=== PATIENT | male | born 1945 | race Caucasian/White ===

== ENCOUNTER → 2016-12-04 19:43 | Outpatient (CLI) | payer MEDICARE ==
[2013-09-07 13:07] VITALS: BMI 32.9
[~2016-12-04 19:43] MED LIST: ARICEPT10 MG PO; BENICAR20 MG PO; CARAFATE1 G PO; CORDARONE200 MG PO; CRESTOR10 MG PO; K-DUR20 MEQ PO; LANTUS INSULIN10 ML SC; LASIX20 MG PO; LOPRESSOR25 MG PO; MEDROL DOSE PACK4 MG PO; MICRO-K10 MEQ PO; NEURONTIN 100100 MG PO; PEPCID20 MG PO; PLAVIX75 MG PO; PROTONIX40 MG PO; REGLAN10 MG PO; RESTORIL15 MG PO; SOLU-MEDRO40 MG/1 M1 TD; ZITHROMAX250 MG PO
== END | disposition home or self-care (01) ==
LOC: D.SLEEP 19:43
DX: G47.33 Obstructive sleep apnea (adult) (pediatric) (principal)

== ENCOUNTER → 2016-12-21 19:46 | Outpatient (CLI) | payer MEDICARE ==
[2013-09-07 13:07] VITALS: BMI 32.9
== END | disposition home or self-care (01) ==
LOC: D.SLEEP 19:46
DX: G47.33 Obstructive sleep apnea (adult) (pediatric) (principal)

== ENCOUNTER → 2017-04-23 12:26 | Outpatient (CLI) | payer MEDICARE ==
[2013-09-07 13:07] VITALS: BMI 32.9
== END | disposition home or self-care (01) ==
LOC: D.CT 12:26
DX: D63.1 Anemia in chronic kidney disease (principal); E11.22 Type 2 diabetes mellitus with diabetic chronic kidney disease

== ENCOUNTER 2017-05-19 21:33 | Emergency (ER) | payer MEDICARE ==
[2013-09-07 13:07] VITALS: BMI 32.9
[2017-05-19 22:15] LABS: BASOPHILS 0.2 % (0-2); EOSINOPHILS 0.8 % (0-7); HEMATOCRIT 35.1 % (42.0-54.0); HEMOGLOBIN 12.1 g/dL (13.5-17.5); IMMATURE GRANULOCYTES 0.2 % (0-5); LYMPHOCYTES 23.6 % (15-50); MCH 32.9 pg (26.0-34.0); MCHC 34.5 g/dL (31.0-37.0); MCV 95.4 fL (80.0-100.0); MEAN PLATELET VOLUME 9.7 fL (7.4-10.4); MONOCYTES 7.7 % (2-11); NEUTROPHILS 67.5 % (40-80); RBC 3.68 10x6/uL (4.20-6.10); RDW 12.8 % (11.5-14.5); WBC 4.8 10x3/uL (4.8-10.8)
[2017-05-19 22:22] LABS: PLATELET COUNT 148 10x3/uL (130-400)
[2017-05-19 22:30] LABS: ALBUMIN 3.4 g/dL (3.4-5.0); ALKALINE PHOSPHATASE 87 U/L (46-116); ALT (SGPT) 33 U/L (10-68); BILIRUBIN - TOTAL 0.56 mg/dL (0.2-1.3); CALC OSMOLALITY 286 mosm/kg (275-300); CALCIUM 8.3 mg/dL (8.5-10.1); CARBON DIOXIDE 25.9 mmol/L (21.0-32.0); CHLORIDE - SERUM 100 mmol/L (98-107); CREATININE - SERUM 2.1 mg/dL (0.6-1.3); POTASSIUM - SERUM 3.8 mmol/L (3.5-5.1); PROTEIN - SERUM 7.1 g/dL (6.4-8.2); SODIUM 136 mmol/L (136-145); UREA NITROGEN 24 mg/dL (7-18); eGFR NON AFRICAN AMERICAN 33 mL/min (90-120)
[2017-05-19 22:34] LABS: GLUCOSE 297 mg/dL (74-106)
[2017-05-19 22:50] LABS: CREATINE KINASE 216 UL (21-232); PRO BNP 445 pg/mL (0-125); THYROID STIMULATING HORMONE 2.43 uIU/mL (0.36-3.74)
[2017-05-19 22:53] LABS: TROPONIN-I < 0.017 ng/mL (0.000-0.060)
[2017-05-19 22:58] LABS: APPEARANCE CLEAR (CLEAR); COLOR YELLOW (YELLOW)
[2017-05-19 22:59] LABS: SPECIFIC GRAVITY 1.015 (1.005-1.020)
[2017-05-19 23:00] LABS: BILIRUBIN NEGATIVE (NEGATIVE); GLUCOSE 1000 mg/dL (NEGATIVE); KETONE NEGATIVE (NEGATIVE); LEUKOCYTE ESTERASE NEGATIVE (NEGATIVE); NITRITE NEGATIVE (NEGATIVE); PROTEIN TRACE mg/dL (NEGATIVE); UROBILINOGEN NORMAL (NORMAL)
== END 2017-05-19 23:30 | disposition home or self-care (01) ==
LOC: D.ER 21:33
PROVIDERS: Emergency Medicine
DX: R42 Dizziness and giddiness (principal); R00.1 Bradycardia, unspecified; T46.2X5A Adverse effect of other antidysrhythmic drugs, initial encounter; Y92.89 Other specified places as the place of occurrence of the external cause; R60.9 Edema, unspecified; E11.65 Type 2 diabetes mellitus with hyperglycemia; Z79.4 Long term (current) use of insulin; N28.9 Disorder of kidney and ureter, unspecified; I44.0 Atrioventricular block, first degree

== ENCOUNTER → 2018-10-28 15:06 | Outpatient (CLI) | payer MEDICARE ==
[2013-09-07 13:07] VITALS: BMI 32.9
== END | disposition home or self-care (01) ==
LOC: D.CT 15:06
DX: M79.671 Pain in right foot (principal)

== ENCOUNTER 2020-03-11 15:07 | Inpatient (IN) | payer MEDICARE ==
[~2020-03-11] VITALS: Ht 185.4 cm; Wt 106.0 kg
[~2020-03-11 15:07] MED LIST changes: +BETAGAN 0.5% OPH5 ML EACH EYE; +CARDIZEM60 MG PO; +CYANOCOBAL1000 MCG/4 SC; +ELIQUIS5 MG PO; +ISOSORBIDE MONO30 M1 PO; +LIPITOR40 MG PO; +LISINOPRIL2.5 MG PO; +NEURONTIN600 MG PO; +TRESIBA FL100 UNIT/1 SC
[2020-03-11 16:02] VITALS: BMI 35.7
[2020-03-11] MEDS ORDERED: NOVOLOG100 UNIT/1 SC (16:13)
[2020-03-11 16:45] LABS: BASOPHILS 0.2 % (0-2); EOSINOPHILS 3.8 % (0-7); HEMATOCRIT 32.1 % (42.0-54.0); HEMOGLOBIN 10.4 g/dL (13.5-17.5); IMMATURE GRANULOCYTES 0.2 % (0-5); LYMPHOCYTES 29.5 % (15-50); MCH 32.5 pg (26.0-34.0); MCHC 32.4 g/dL (31.0-37.0); MCV 100.3 fL (80.0-100.0); MEAN PLATELET VOLUME 9.4 fL (7.4-10.4); MONOCYTES 11.8 % (2-11); NEUTROPHILS 54.5 % (40-80); PLATELET COUNT 155 10x3/uL (130-400); RDW 13.1 % (11.5-14.5); WBC 4.8 10x3/uL (4.8-10.8)
[2020-03-11 17:08] LABS: ALBUMIN 3.8 g/dL (3.4-5.0); ANION GAP 14.3 mmol/L (8-16); BILIRUBIN - TOTAL 0.37 mg/dL (0.2-1.3); CARBON DIOXIDE 22.2 mmol/L (21.0-32.0); CREATININE - SERUM 3.2 mg/dL (0.6-1.3); POTASSIUM - SERUM 5.5 mmol/L (3.5-5.1); PROTEIN - SERUM 7.8 g/dL (6.4-8.2); THYROID STIMULATING HORMONE 2.04 uIU/mL (0.36-3.74)
[2020-03-11 17:51] VITALS: BP 117/57
--- NOTE | 2020-03-11 19:15 | NUR ---
RECEIVED REPORT, WILL ASSUME CARE OF PT, SLEEPING, NO DISTRESS NOTICED AT THIS TIME, BED IS LOW, SRX2, CALL LIGHT IN REACH, WILL CONTINUE PLAN OF CARE
[2020-03-11 20:27] VITALS: BP 120/58
[2020-03-11 23:43] VITALS: BP 89/47
--- NOTE | 2020-03-12 02:38 | NUR ---
I have reviewed this patient and I concur with the Shift Assessment completed by the Licensed Practical Nurse today this shift.
[2020-03-12 05:23] VITALS: BP 101/55
[2020-03-12 05:27] LABS: BILIRUBIN NEGATIVE (NEGATIVE); GLUCOSE NEGATIVE (NEGATIVE); KETONE NEGATIVE (NEGATIVE); NITRITE NEGATIVE (NEGATIVE); SPECIFIC GRAVITY 1.015 (1.005-1.020); UROBILINOGEN NORMAL (NORMAL)
[2020-03-12 06:44] LABS: BASOPHILS 0.2 % (0-2); EOSINOPHILS 3.5 % (0-7); HEMATOCRIT 34.5 % (42.0-54.0); HEMOGLOBIN 11.3 g/dL (13.5-17.5); IMMATURE GRANULOCYTES 0.2 % (0-5); LYMPHOCYTES 21.2 % (15-50); MCHC 32.8 g/dL (31.0-37.0); MCV 100.9 fL (80.0-100.0); MEAN PLATELET VOLUME 9.6 fL (7.4-10.4); MONOCYTES 10.8 % (2-11); NEUTROPHILS 64.1 % (40-80); PLATELET COUNT 172 10x3/uL (130-400); RBC 3.42 10x6/uL (4.20-6.10); RDW 13.2 % (11.5-14.5); WBC 5.5 10x3/uL (4.8-10.8)
[2020-03-12 06:50] LABS: APTT 31.8 SECONDS (22.8-39.4); INR 1.02 (0.85-1.17); PROTIME 13.3 SECONDS (11.6-15.0)
[2020-03-12 07:03] LABS: ALBUMIN 3.9 g/dL (3.4-5.0); ANION GAP 15.9 mmol/L (8-16); BILIRUBIN - TOTAL 0.4 mg/dL (0.2-1.3); CALCIUM 9.3 mg/dL (8.5-10.1); CARBON DIOXIDE 23.5 mmol/L (21.0-32.0); CREATININE - SERUM 3.6 mg/dL (0.6-1.3); MAGNESIUM - SERUM 2.2 mg/dL (1.8-2.4); PHOSPHOROUS 5.6 mg/dL (2.5-4.9); POTASSIUM - SERUM 5.4 mmol/L (3.5-5.1); PROTEIN - SERUM 8.1 g/dL (6.4-8.2)
--- NOTE | 2020-03-12 09:04 | NUR ---
ASSESSMENT DONE, DENIED NEEDS
--- NOTE | 2020-03-12 09:05 | NUR ---
ASSESSMENT DONE. DENIES NEEDS
[2020-03-12 09:21] VITALS: BP 109/69
--- NOTE | 2020-03-12 10:12 | NUR ---
I have reviewed this patient and I concur with the Shift Assessment completed by the Licensed Practical Nurse today this shift.
[2020-03-12 12:27] LABS: % SATURATION 36 % (15-55); IRON 110 ug/dl (35-150); TOTAL IRON BIND CAPACITY 303 ug/dl (260-445); UNSAT IRON BIND CAPACITY 193 ug/dl (150-375)
[2020-03-12 12:56] VITALS: BMI 32.2
[2020-03-12 12:59] LABS: FERRITIN 261 ng/mL (3-244)
[2020-03-12 13:03] VITALS: BP 104/56
[2020-03-12 17:38] VITALS: BP 115/62
[2020-03-12 21:31] VITALS: BP 113/57
[2020-03-13 00:30] VITALS: BP 137/59
--- NOTE | 2020-03-13 01:35 | NUR ---
CALLED TO ROOM, PT ASKED FOR BS TO BE CHECKED. BS 120, SNACK PROVIDED.
[2020-03-13 04:39] VITALS: BP 112/52
[2020-03-13 05:55] LABS: BASOPHILS 0.3 % (0-2); EOSINOPHILS 2.2 % (0-7); HEMOGLOBIN 11.5 g/dL (13.5-17.5); IMMATURE GRANULOCYTES 0.2 % (0-5); LYMPHOCYTES 22.3 % (15-50); MCH 32.7 pg (26.0-34.0); MCHC 32.9 g/dL (31.0-37.0); MCV 99.4 fL (80.0-100.0); MEAN PLATELET VOLUME 9.8 fL (7.4-10.4); MONOCYTES 8.1 % (2-11); NEUTROPHILS 66.9 % (40-80); PLATELET COUNT 176 10x3/uL (130-400); RBC 3.52 10x6/uL (4.20-6.10); RDW 13.1 % (11.5-14.5); WBC 6.3 10x3/uL (4.8-10.8)
[2020-03-13 06:22] LABS: ALBUMIN 3.9 g/dL (3.4-5.0); ANION GAP 15.4 mmol/L (8-16); BILIRUBIN - TOTAL 0.37 mg/dL (0.2-1.3); CALCIUM 8.9 mg/dL (8.5-10.1); CARBON DIOXIDE 21.9 mmol/L (21.0-32.0); CREATININE - SERUM 3.9 mg/dL (0.6-1.3); PROTEIN - SERUM 8.1 g/dL (6.4-8.2)
[2020-03-13 06:25] LABS: POTASSIUM - SERUM 6.3 mmol/L (3.5-5.1)
--- NOTE | 2020-03-13 06:45 | NUR ---
SPOKE WITH Vignesh SANTANA APN, NOTIFIED OF PTS HIGH POTASSIUM LEVEL. ORDERS GIVEN AND CARRIED OUT.
--- NOTE | 2020-03-13 07:38 | NUR ---
ASSESSMENT DONE. DENIES NEEDS
[2020-03-13 07:59] VITALS: BP 107/61
[2020-03-13 09:12] LABS: ANION GAP 16.7 mmol/L (8-16); CREATININE - SERUM 3.9 mg/dL (0.6-1.3); POTASSIUM - SERUM 5.7 mmol/L (3.5-5.1)
--- NOTE | 2020-03-13 09:22 | NUR ---
I have reviewed this patient and I concur with the Shift Assessment completed by the Licensed Practical Nurse today this shift.
[2020-03-13 11:41] VITALS: BP 130/70
[2020-03-13 16:33] VITALS: BP 97/59
--- NOTE | 2020-03-13 18:24 | NUR ---
AT SIDE. WITHOUT CHANGES OR DISTRESS NOTED AT THIS TIME. DENIES NEEDS
[2020-03-13 20:00] VITALS: BP 118/66
[2020-03-14] VITALS: BP 119/61
[2020-03-14 04:00] VITALS: BP 129/60
--- NOTE | 2020-03-14 07:16 | NUR ---
ASSESSMENT DONE. DENIES NEEDS
[2020-03-14 07:59] LABS: BASOPHILS 0.2 % (0-2); EOSINOPHILS 2.4 % (0-7); HEMATOCRIT 35.1 % (42.0-54.0); HEMOGLOBIN 11.6 g/dL (13.5-17.5); IMMATURE GRANULOCYTES 0.2 % (0-5); LYMPHOCYTES 24.3 % (15-50); MCH 32.6 pg (26.0-34.0); MCV 98.6 fL (80.0-100.0); MEAN PLATELET VOLUME 9.5 fL (7.4-10.4); MONOCYTES 8.3 % (2-11); NEUTROPHILS 64.6 % (40-80); PLATELET COUNT 154 10x3/uL (130-400); RBC 3.56 10x6/uL (4.20-6.10); RDW 12.9 % (11.5-14.5); WBC 5.8 10x3/uL (4.8-10.8)
[2020-03-14 08:25] LABS: ALBUMIN 3.8 g/dL (3.4-5.0); ANION GAP 15.2 mmol/L (8-16); BILIRUBIN - TOTAL 0.34 mg/dL (0.2-1.3); CALCIUM 8.6 mg/dL (8.5-10.1); CARBON DIOXIDE 20.9 mmol/L (21.0-32.0); CREATININE - SERUM 4.3 mg/dL (0.6-1.3); POTASSIUM - SERUM 5.1 mmol/L (3.5-5.1); PROTEIN - SERUM 7.4 g/dL (6.4-8.2)
--- NOTE | 2020-03-14 09:22 | NUR ---
I have reviewed this patient and I concur with the Shift Assessment completed by the Licensed Practical Nurse today this shift.
[2020-03-14 09:25] VITALS: BP 103/59
--- NOTE | 2020-03-14 12:45 | NUR ---
Nutrition Follow-up: Eating well. Diet: Renal ADA PO intake: 75-100% Wt: 233# (03/14); 244.2# (03/12); noted I/Os (-855 cc on 03/13) Labs noted: Na 132, K+ 5.1, Glu 188 Meds noted: Reglan, Pepcid, Humalog, Lasix, electrolyte protocol -Monitor wt; noted daily wts ordered. -RD following.
[2020-03-14 13:38] VITALS: Ht 185.4 cm; Wt 106.0 kg
[2020-03-14 13:45] VITALS: BP 103/57
--- NOTE | 2020-03-14 13:58 | NUR ---
BLADDER SCAN SHOWES 58 CC
--- NOTE | 2020-03-14 17:44 | NUR ---
KAREN AT SIDE. WITHOUT CHANGES OR DISTRESS NOTED AT THIS TIME. VANNA NEEDS
[2020-03-14 17:51] VITALS: BP 138/88
--- NOTE | 2020-03-14 19:18 | NUR ---
AWAKE AND ALERT AND DENIES NEEDS AT THIS TIME BED LOW AND LOCKED CALL IS WITH PT
[2020-03-14 20:00] VITALS: BP 118/64
[2020-03-15] VITALS: BP 120/97
--- NOTE | 2020-03-15 01:07 | NUR ---
FOUND IV PUMP OFF PT STATES FOR ME NOT TO TURN BACK ON I FLUSHED AND SALINE LOCKED IV
--- NOTE | 2020-03-15 03:44 | NUR ---
I have reviewed this patient and I concur with the Shift Assessment completed by the Licensed Practical Nurse today this shift.
[2020-03-15 08:04] VITALS: BP 122/68
[2020-03-15 09:13] LABS: BASOPHILS 0.2 % (0-2); EOSINOPHILS 1.8 % (0-7); HEMATOCRIT 33.9 % (42.0-54.0); HEMOGLOBIN 11.3 g/dL (13.5-17.5); IMMATURE GRANULOCYTES 0.2 % (0-5); LYMPHOCYTES 26.2 % (15-50); MCH 32.9 pg (26.0-34.0); MCHC 33.3 g/dL (31.0-37.0); MCV 98.8 fL (80.0-100.0); MEAN PLATELET VOLUME 9.7 fL (7.4-10.4); MONOCYTES 8.8 % (2-11); NEUTROPHILS 62.8 % (40-80); PLATELET COUNT 167 10x3/uL (130-400); RBC 3.43 10x6/uL (4.20-6.10); RDW 12.8 % (11.5-14.5); WBC 5.5 10x3/uL (4.8-10.8)
[2020-03-15 09:44] LABS: ALBUMIN 3.7 g/dL (3.4-5.0); ANION GAP 14.7 mmol/L (8-16); BILIRUBIN - TOTAL 0.44 mg/dL (0.2-1.3); CALCIUM 8.9 mg/dL (8.5-10.1); CARBON DIOXIDE 21.6 mmol/L (21.0-32.0); POTASSIUM - SERUM 5.3 mmol/L (3.5-5.1); PROTEIN - SERUM 7.8 g/dL (6.4-8.2)
[2020-03-15 12:49] VITALS: BP 111/63
--- NOTE | 2020-03-15 14:19 | NUR ---
PT DISCHARGED HOME VIA WHEELCHAIR WITH FAMILY. TELEMETRY REMOVED AND RETURNED. PT SIGNED PROPER DISCHARGE INSTRUCTIONS AND REMOVED ALL VALUABLES FROM THE ROOM. PIV REMOVED WITH CATHETER TIP FULLY INTACT.
== END 2020-03-15 14:20 | disposition home or self-care (01) | DRG 291 ==
LOC: D.M2 15:07 → D.SDCHOLD 03-12 13:23 → D.M2 03-12 13:24
PROVIDERS: Internal Medicine Nephrology; ADMIT Family Medicine; ATTEND Family Medicine
DX: I13.0 Hypertensive heart and chronic kidney disease with heart failure and stage 1 through stage 4 chronic kidney disease, or unspecified chronic kidney disease (principal); I50.33 Acute on chronic diastolic (congestive) heart failure; N17.9 Acute kidney failure, unspecified; N18.3 Chronic kidney disease, stage 3 (moderate); E11.22 Type 2 diabetes mellitus with diabetic chronic kidney disease; D63.1 Anemia in chronic kidney disease; E87.5 Hyperkalemia; E78.5 Hyperlipidemia, unspecified; I48.91 Unspecified atrial fibrillation; E11.42 Type 2 diabetes mellitus with diabetic polyneuropathy; I25.10 Atherosclerotic heart disease of native coronary artery without angina pectoris

== ENCOUNTER → 2020-03-28 08:52 | Outpatient (CLI) | payer MEDICARE ==
[2020-03-14 13:38] VITALS: BMI 32.2
[~2020-03-28 08:52] MED LIST changes: +NOVOLOG100 UNIT/1 SC
== END | disposition home or self-care (01) ==
LOC: D.RT 08:52
PROVIDERS: ATTEND Internal Medicine Pulmonary Disease
DX: R06.09 Other forms of dyspnea (principal); Z87.01 Personal history of pneumonia (recurrent)